=== PATIENT | female | born 1960 | race African-American/Black ===

== ENCOUNTER 2017-02-02 18:57 | Emergency (ER) | payer OTHER ==
[2017-02-02 18:40] LABS: INFLUENZA A NEG (NEG); INFLUENZA B NEG (NEG)
[~2017-02-02 18:57] MED LIST: ASPIRIN81 M2 PO; CHLORTHALIDONE25 MG PO
== END 2017-02-02 19:14 | disposition home or self-care (01) ==
LOC: CFTX 18:57
PROVIDERS: Nurse Practitioner
DX: J06.9 Acute upper respiratory infection, unspecified (principal); J42 Unspecified chronic bronchitis; I10 Essential (primary) hypertension
CPT/HCPCS: 87651; 87804; 99282

== ENCOUNTER 2017-02-06 16:39 | Emergency (ER) | payer OTHER | END 2017-02-06 16:46 | disposition home or self-care (01) | LOC: CFTX 16:39 | DX: J06.9 Acute upper respiratory infection, unspecified (principal); I10 Essential (primary) hypertension | CPT/HCPCS: 99282 ==

== ENCOUNTER 2017-02-21 04:02 | Emergency (ER) | payer OTHER | END 2017-02-21 04:15 | disposition home or self-care (01) | LOC: CED 04:02 | DX: J06.9 Acute upper respiratory infection, unspecified (principal); B37.9 Candidiasis, unspecified; I10 Essential (primary) hypertension | CPT/HCPCS: 99282 ==

== ENCOUNTER 2017-02-24 05:27 | Emergency (ER) | payer OTHER | END 2017-02-24 05:34 | disposition home or self-care (01) | LOC: CED 05:27 | DX: J30.2 Other seasonal allergic rhinitis (principal); J40 Bronchitis, not specified as acute or chronic; I10 Essential (primary) hypertension | CPT/HCPCS: 99282 ==

== ENCOUNTER 2017-03-08 17:58 | Emergency (ER) | payer OTHER ==
--- NOTE | ~2017-03-08 | CR127 ---
[facility] A Service of [facility] & [facility] RADIOLOGY TEXT RESULTS PATIENT: ALEJO DICKEY LOCATION: CFTX : 60 UNIT #: [id number] AGE: [address]: Seda Logan SEX: F ORDER DR: [id number] [facility] [address] [address] [id number] E MR#: [id number] Acc #: [id number] NAME: ALEJO DICKEY : 1960 SEX: F STUDY DATE/TIME: 03/08/2017 17:09 UNIT: CFTX ROOM: STUDY DESCRIPTION: CR Foot Complete Min 3 View Rt Attending Physician: Seda Logan P.A.-C. Ordering Physician: Seda Logan P.A.-C. Primary Care Physician: Grant Amaral MEDICAL IMAGING REPORT This report is preliminary unless electronic signature is present EXAM Right foot 03/08/2017 HISTORY Foot pain for the past 4 days with no known trauma. TECHNIQUE 3 views of the foot were obtained. FINDINGS 3 views of the foot show a plantar heel spur. There is mild degenerative change at the interphalangeal joint of the great toe with joint space narrowing. There is no evidence of fracture, bone destruction or foreign body. No acute findings. IMPRESSION Plantar heel spur. Mild degenerative change interphalangeal joint of the great toe. Otherwise negative. Dictated by... Zhen Puga M.D. THIS IS AN ELECTRONICALLY VERIFIED REPORT Zhen Puga M.D. at 03/08/2017 10:22 PM Aguilar TD: 03/08/2017 18:28 JOB #: [id number] MEDICAL IMAGING REPORT Page 1 of 1 COPY
--- NOTE | ~2017-03-08 | CR21 ---
[facility] A Service of [facility] & [facility] RADIOLOGY TEXT RESULTS PATIENT: ALEJO DICKEY LOCATION: CFTX : 60 UNIT #: [id number] AGE: [address]: Seda Logan SEX: F ORDER DR: [id number] [facility] [address] [place], [place] [address] [id number] E MR#: [id number] Acc #: [id number] NAME: ALEJO DICKEY : 1960 SEX: F STUDY DATE/TIME: 03/08/2017 17:11 UNIT: [facility] ROOM: STUDY DESCRIPTION: CR Ankle Min 3 Views Rt Attending Physician: Seda Logan P.A.-C. Ordering Physician: Seda Logan P.A.-C. Primary Care Physician: Grant Amaral MEDICAL IMAGING REPORT This report is preliminary unless electronic signature is present EXAM Right ankle HISTORY Pain and swelling for the past 4 days with no history of trauma TECHNIQUE 3 views of the ankle were obtained. FINDINGS AP, lateral, and oblique projections of the ankle show satisfactory integrity of the joint mortise with a smooth articular surface. There is no identifiable fracture, dislocation, or radiopaque foreign body. Note incidentally is a plantar heel spur. IMPRESSION Normal ankle. Dictated by... Zhen Puga M.D. THIS IS AN ELECTRONICALLY VERIFIED REPORT Zhen Puga M.D. at 03/08/2017 10:22 PM RLF/to TD: 03/08/2017 18:31 JOB #: [id number] MEDICAL IMAGING REPORT Page 1 of 1 COPY
== END 2017-03-08 18:08 | disposition home or self-care (01) ==
LOC: CFTX 17:58
DX: M25.571 Pain in right ankle and joints of right foot (principal); J45.909 Unspecified asthma, uncomplicated; I10 Essential (primary) hypertension
CPT/HCPCS: 29540; 73610; 73630; 99283

== ENCOUNTER 2017-03-12 19:20 | Emergency (ER) | payer OTHER | END 2017-03-12 20:38 | disposition home or self-care (01) | LOC: CFTX 19:20 | DX: L03.115 Cellulitis of right lower limb (principal); I10 Essential (primary) hypertension; E78.5 Hyperlipidemia, unspecified; J45.909 Unspecified asthma, uncomplicated; Z88.1 Allergy status to other antibiotic agents | CPT/HCPCS: 99282 ==